=== PATIENT | male | born 1980 | race American Indian/Alaskan Native ===

== ENCOUNTER 2018-11-24 23:02 | Emergency (ER) | payer MEDICAID, OTHER ==
[2018-11-25] MEDS ORDERED: Lidocaine 1% 30 ML SDV INJECT ONE (00:07)
[2018-11-25] MEDS ORDERED: Diphtheria,Pertussis(Acell),Tetanus Vaccine 0.5 ML SDV IM ONE (00:07)
--- NOTE | 2018-11-25 00:11 | EDM.PDOC ---
ED HPI GENERAL MEDICAL PROBLEM - General Stated Complaint: CUT LEFT THUMB Time Seen by Provider: 11/25/18 00:07 Source of Information: Reports: Patient History Limitations: Reports: No Limitations - History of Present Illness INITIAL COMMENTS - FREE TEXT/NARRATIVE: cut left thumb tip @ 10pm. - Related Data Allergies Allergy/AdvReac Type Severity Reaction Status Date / Time No Known Allergies Allergy Verified 11/25/18 00:09 Home Meds: Home Meds . [No Known Home Meds] 11/25/18 [History] Review of Systems - Review of Systems Review Of Systems: ROS reveals no pertinent complaints other than HPI. ED EXAM, GENERAL - Physical Exam Exam: See Below Exam Limited By: No Limitations General Appearance: Alert, WD/WN, No Apparent Distress Ears: Hearing Grossly Normal Throat/Mouth: Normal Voice, No Airway Compromise Head: Atraumatic Neck: Non-Tender, Full Range of Motion Respiratory/Chest: No Respiratory Distress Cardiovascular: Regular Rate, Rhythm GI/Abdominal: Soft, Non-Tender Extremities: Other (left thumb tip, NV wnl) Neurological: Alert, Oriented, Normal Cognition, Normal Gait, No Motor/Sensory Deficits Psychiatric: Normal Affect, Normal Mood Skin Exam: Warm, Dry, Normal Color Lymphatic: No Adenopathy ED TRAUMA EXTREMITY PROCEDURES - Laceration/Wound Repair Left Digit - 1st (Thumb) Lac/Wound Length In cm: 2 (thumb tip) Appearance: Subcutaneous, Linear, Clean Distal NVT: Neuro & Vascular Intact, No Tendon Injury Anesthetic Type: Local Local Anesthesia - Lidocaine (Xylocaine): 1% Plain Local Anesthetic Volume: 3cc Skin Prep: Chlorhexidine (Hibiciens) Saline Irrigation (cc's): 20 Exploration/Debridement/Repair: Wound Explored, No Foreign Material Found Closed With: Sutures Suture Size: 3-0 Suture Type: Nylon, Interrupted Sterile Dressing Applied: Provider Tetanus Status Addressed: Yes Complications: No Course - Orders/Labs/Meds Orders: Active Orders 24 hr Category Date Time Status Vaccines to be Administered [RC] PER UNIT ROUTINE Care 11/25/18 00:07 Active Meds: Medications Discontinued Medications Generic Name Dose Route Start Last Admin Trade Name Freq PRN Reason Stop Dose Admin Diphtheria/Tetanus/Acell Pertussis 0.5 ml 11/25/18 00:07 Adacel IM 11/25/18 00:08 .ONCE ONE Lidocaine HCl 30 ml 11/25/18 00:07 11/25/18 00:12 Xylocaine-Mpf 1% INJECT 11/25/18 00:08 5 ml ONETIME ONE Administration Departure - Departure Time of Disposition: 00:24 Disposition: Home, Self-Care 01 Condition: Good Clinical Impression: Laceration of thumb with foreign body without damage to nail Qualifiers: Encounter type: initial encounter Laterality: left Qualified Code(s): S61.022A - Laceration with foreign body of left thumb without damage to nail, initial encounter - Discharge Information Instructions: Sutured Wound Care, [id number] Additional Instructions: 1) keep wound clean dry covered 2) suture removal 10 days 3) recheck if looks infected - My Orders Last 24 Hours: My Active Orders 11/25/18 00:07 Vaccines to be Administered [RC] PER UNIT ROUTINE - Assessment/Plan Last 24 Hours: My Active Orders 11/25/18 00:07 Vaccines to be Administered [RC] PER UNIT ROUTINE
[2018-11-25] MEDS ORDERED: Diphtheria,Pertussis(Acell),Tetanus Vaccine 0.5 ML SDV ONE (00:32)
== END 2018-11-25 00:55 | disposition home or self-care (01) ==
LOC: DL.ED 23:02
DX: S61.012A Laceration without foreign body of left thumb without damage to nail, initial encounter (principal); W26.0XXA Contact with knife, initial encounter
CPT/HCPCS: 12001; 12011; 90471; 90715; 99282

== ENCOUNTER 2019-04-28 21:56 | Emergency (ER) | payer MEDICAID, OTHER ==
[2019-04-28 22:31] LABS: ANION GAP 11.5; CHLORIDE,CL 106 mmol/L (101-111); SODIUM,NA 140 mmol/L (135-145)
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
== END 2019-04-29 00:32 ==
LOC: DL.ED 21:56
DX: S00.81XA Abrasion of other part of head, initial encounter (principal); S20.411A Abrasion of right back wall of thorax, initial encounter; F15.10 Other stimulant abuse, uncomplicated; J45.909 Unspecified asthma, uncomplicated; Z77.22 Contact with and (suspected) exposure to environmental tobacco smoke (acute) (chronic); Z79.899 Other long term (current) drug therapy; V89.2XXA Person injured in unspecified motor-vehicle accident, traffic, initial encounter
CPT/HCPCS: 36415; 71111; 80053; 80305; 81001; 82150; 85025; 99284; G0480; 99283